=== PATIENT | male | born 1975 | race Caucasian/White ===

== ENCOUNTER 2019-03-23 12:36 | Emergency (ER) | payer OTHER, MEDICAID, SELFPAY ==
[2019-03-23 12:47] VITALS: BP 142/80; PULSE 88; RESP 18; TEMP 36.7; O2SAT 97
[2019-03-23 15:00] VITALS: BP 134/69; PULSE 74; RESP 18; TEMP 36.2; O2SAT 97
[2019-03-23 15:01] LABS: Bacteria Urine None Seen; RBC Urine None Seen (0-5/HPF); WBC Urine None Seen (0-5/HPF)
[2019-03-23 15:19] LABS: Culture Indicated Urine Cult Not Indicated; Mucus Urine 1+ (Negative)
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
--- NOTE | 2019-03-23 15:47 | DI.US.S_ITS ---
PROCEDURE: US SCROTUM INDICATIONS: LEFT TESTICULAR PAIN TECHNIQUE: Real-time scanning was performed of the scrotum and testicles, with image documentation. Color and pulse Doppler interrogation was performed of both testicles. COMPARISON: None. FINDINGS: Right: Testicle is normal in size at 4.7 x 2.4 x 3.5 cm, and homogenous in echotexture. Epididymis is normal in overall size and morphology. No hydrocele or varicoceles. Overlying scrotal skin is normal in thickness. Left: Testicle is normal in size at 4.6 x 2.3 x 2.9 cm, and homogeneous in echotexture. Epididymis is normal in overall size and morphology. No hydrocele or varicoceles. Overlying scrotal skin is normal in thickness. Doppler: Color and pulse Doppler demonstrate normal and symmetric arterial flow in both testicles. Additional, dedicated ultrasound scanning is performed of the left inguinal canal. No focal ultrasound abnormalities are seen within this region. IMPRESSION: Negative study, without an imaging explanation found for the patient's presenting history of left testicular pain. The left testicle demonstrates normal appearance, without torsion, hyperemia, or masses. Dictated by: Panfilo Salinas M.D. on 03/23/2019 at 16:26 Approved by: Panfilo Salinas M.D. on 03/23/2019 at 16:28
--- NOTE | 2019-03-23 15:54 | PC.NURSE ---
reports that he is having testicle pain. abdominal discomfort. assisted Dr. Kennedy at bedside for exam.
[2019-03-23 15:59] LABS: Add Manual Diff / Slide Review NO; Basophils Absolute Auto 0 /uL (0-100); Basophils Percent Auto 0.5 % (0-2); Eosinophils Absolute Auto 500 /uL (0-450); Eosinophils Percent Auto 5.2 % (2-4); Hematocrit 44.1 % (41-53); Hemoglobin 14.6 g/dL (13.5-17.5); Lymphocytes Absolute Auto 1500 /uL (1100-4500); Lymphocytes Percent Auto 15.5 % (25-40); Mean Corpuscular HGB Conc 33.1 % (30-36); Mean Corpuscular Hemoglobin 29.4 PG (26-34); Monocytes Absolute Auto 700 /uL (0-900); Monocytes Percent Auto 7.5 % (3-14); Neutrophils Absolute Auto 6700 /uL (1500-7000); Neutrophils Percent Auto 71.3 % (50-75); Platelet Count 210 X10^3/uL (150-400); Red Blood Cell Count 4.96 X10^6/uL (4.5-5.9); White Blood Cell Count 9.4 X10^3/uL (4.5-11.0)
[2019-03-23 16:03] LABS: Alanine Aminotransferase 24 IU/L (21-72); Albumin 4.4 g/dL (3.5-5.0); Albumin Globulin Ratio 1.5 (1.0-2.8); Alkaline Phosphatase 56 U/L (38-126); Aspartate Aminotransferase 26 IU/L (17-59); BUN Creatinine Ratio 14.4 (6-22); Bilirubin Total 0.3 mg/dL (0.2-1.3); Blood Urea Nitrogen 13 mg/dL (9-20); Calcium 8.7 mg/dL (8.4-10.2); Carbon Dioxide 23 mmol/L (22-32); Chloride 104 mmol/L (98-107); Estimated Glomerular Filt Rate > 60.0 mL/min (>60); Glucose 105 mg/dL (70-100); HEMOLYSIS < 15 (0-50); Potassium 4.2 mmol/L (3.4-5.1); Sodium 137 mmol/L (137-145); Total Protein 7.4 g/dL (6.3-8.2)
[2019-03-23] MEDS: ONDANSETRON 4 MG/2 ML INJ IV (16:14)
[2019-03-23] MEDS: KETOROLAC 60 MG/2 ML VIAL 30 MG IV (16:15)
[2019-03-23 16:48] VITALS: BP 149/86; PULSE 75; RESP 19; O2SAT 98
--- NOTE | 2019-03-23 17:03 | DI.CT.S_ITS ---
PROCEDURE: CT KIDNEY URETER BLADDER (KUB) INDICATIONS: left testicular/flank pain, neg us TECHNIQUE: Noncontrast 5 mm thick sections acquired from the diaphragms to the symphysis. 5 mm thick coronal and sagittal reformats were then performed. For radiation dose reduction, the following was used: automated exposure control, adjustment of mA and/or kV according to patient size. COMPARISON: [facility], US, US SCROTUM, 03/23/2019, 16:34. FINDINGS: Image quality: Excellent. Lung bases: Lung bases are clear. Heart size is normal. Urinary system: Both kidneys are normal in size. Small left-sided kidney stones are seen, which measure up to 3 mm, as on series 2 image 31. No hydronephrosis or perinephric fat stranding. Both ureters appear non-dilated throughout their expected courses. Bladder wall thickness is normal; no calcified bladder stones. Other solid organs: Liver is normal in size. Gallbladder wall is not thickened. Pancreas is normal in contours. Spleen is normal in size. Incidental note is made of an accessory spleen along the hilum of the primary spleen. No adrenal nodules. Peritoneum and bowel: Unenhanced bowel loops demonstrate normal wall thickness and caliber. No free fluid or air. Incidental note is made of a normal-appearing appendix. Nodes and vessels: No retroperitoneal or mesenteric adenopathy by size criteria. Aorta and inferior vena cava are normal in caliber. Abdominal wall: No ventral hernias. Pelvis: No free pelvic fluid. No inguinal hernias or adenopathy. Bones: No suspicious bony lesions. No vertebral body compression fractures. Degenerative changes are seen, which are most prominent at the L5-S1 level. IMPRESSION: No ureteral stones or findings of obstructive uropathy are seen. Nonobstructing left-sided kidney stones are seen that measure up to 3 mm. Incidental note is made of: Accessory spleen Normal appendix Premature lower lumbar spine degenerative change Dictated by: Panfilo Salinas M.D. on 03/23/2019 at 17:00 Approved by: Panfilo Salinas M.D. on 03/23/2019 at 17:04
[2019-03-23] MEDS: MORPHINE 4 MG/ML INJ IV (17:33)
[2019-03-23 17:57] LABS: Urine N gonorrhoeae NOT DETECTED
[2019-03-23 18:04] LABS: Urine Chlamydia NOT DETECTED
[2019-03-23 19:03] VITALS: BP 147/93; PULSE 66; RESP 16; O2SAT 98
== END 2019-03-23 19:09 | disposition home or self-care (01) ==
PROVIDERS: Emergency Provider Emergency Medicine
DX: R10.9 Unspecified abdominal pain (principal); M54.16 Radiculopathy, lumbar region; M54.9 Dorsalgia, unspecified; R20.0 Anesthesia of skin; R11.0 Nausea; N50.812 Left testicular pain
CPT/HCPCS: 36591; 74176; 76870; 80053; 81003; 81015; 85025; 87491; 87591; 96374; 96375; 99283; 99284; J1885; J2270; J2405

== ENCOUNTER → 2019-04-25 16:57 | Outpatient (CLI) | payer OTHER, MEDICAID, SELFPAY | PROVIDERS: PCP Nurse Practitioner; Visit Provider Nurse Practitioner | DX: Z53.9 Procedure and treatment not carried out, unspecified reason (principal) ==

== ENCOUNTER → 2019-04-26 16:57 | Outpatient (CLI) | payer OTHER, MEDICAID, SELFPAY ==
--- NOTE | 2019-04-26 17:01 | DI.RAD.S_ITS ---
PROCEDURE: XR FOOT LT MIN 3V INDICATIONS: Pain TECHNIQUE: 3 views of the foot were acquired. COMPARISON: None. FINDINGS: Bones: No fractures or dislocations. Mild irregularity and spurring at the first TMT and second TMT joints. Moderate spurring of the tibiotalar joint and along the dorsal aspect of the hindfoot. No suspicious bony lesions. Soft tissues: No tibiotalar joint effusion. Achilles tendon appears normal. IMPRESSION: 1. No acute fracture. 2. Chronic appearing mild degenerative changes as described. Dictated by: Angella Juarez M.D. on 04/26/2019 at 18:24 Approved by: Angella Juarez M.D. on 04/26/2019 at 18:26
--- NOTE | 2019-04-26 17:01 | DI.RAD.S_ITS ---
PROCEDURE: XR THORACIC SPINE 3V INDICATIONS: pain TECHNIQUE: 3 views of the thoracic spine were acquired. COMPARISON: None. FINDINGS: Bones: No fractures or dislocations. Minor degenerative spurring. No suspicious bony lesions. 12 pairs of ribs are noted, and appear intact where visualized. Soft tissues: No paravertebral stripe thickening. IMPRESSION: Intact thoracic spine. Dictated by: Angella Juarez M.D. on 04/26/2019 at 18:26 Approved by: Angella Juarez M.D. on 04/26/2019 at 18:28
--- NOTE | 2019-04-26 17:01 | DI.RAD.S_ITS ---
PROCEDURE: XR LUMBAR SPINE 2-3V INDICATIONS: pain TECHNIQUE: 3 views of the lumbar spine were acquired. COMPARISON: [facility], , L-SPINE 2-3 VIEWS, 07/09/2017, 19:14. FINDINGS: Bones: 5 [id number] vertebrae are present. There is normal bony alignment. No vertebral body compression fractures. No suspicious bony lesions. Moderate to severe chronic L5-S1 disc height loss and moderate L4-5 disc height loss with mild endplate spur formation. Soft tissues: Overlying bowel gas pattern is normal. No suspicious soft tissue calcifications. IMPRESSION: 1. No acute fractures or subluxation. 2. Chronic lower lumbar disc and endplate degeneration with minimal progression compared to the prior study. Dictated by: Angella Juarez M.D. on 04/26/2019 at 18:28 Approved by: Angella Juarez M.D. on 04/26/2019 at 18:29
== END ==
PROVIDERS: PCP Nurse Practitioner; Visit Provider Nurse Practitioner
DX: M79.672 Pain in left foot (principal); M54.5 Low back pain; M54.6 Pain in thoracic spine; S29.019A Strain of muscle and tendon of unspecified wall of thorax, initial encounter
CPT/HCPCS: 72072; 72100; 73630